=== PATIENT | female | born 1985 | race Caucasian/White ===

== ENCOUNTER 2020-06-24 13:35 | Outpatient (CLI) | payer BC, SELFPAY ==
--- NOTE | ~2020-06-24 | US_ITS ---
EXAMINATION: US FNA w image guidance DATE: 06/24/2020 14:28 INDICATION: Nontoxic single thyroid nodule. TECHNIQUE: The procedure and its benefits, risks, and benefits were discussed with the patient. Risks specifical ly discussed included bleeding. The patient verbalized understanding of the risks and agreed to proce ed. The neck was prepped and draped in the usual sterile manner. 1% lidocaine was used for local ane sthesia. 5 passes were made with a 25G needle into the lesion. Appropriate needle location was docu mented with continuous sonographic guidance. There were no immediate complications. The patient unde rstood to call the ordering physician for results after a week and a half and verbalized that underst anding. FINDINGS: Grayscale ultrasound images demonstrate needles advanced into a 2.4 cm solid, hypoechoic, wider-than- tall nodule with ill-defined margin without echogenic foci in inferior right thyroid lobe for biopsy. The thyroid is diffusely heterogeneous, hypoechoic, and hypervascular. IMPRESSION: 1. Ultrasound-guided fine needle aspiration of a nodule in right thyroid lobe. 2. Heterogeneous, hypervascular thyroid, consistent with chronic lymphocytic ([place]) thyroiditis versus Graves' disease. Reviewed, dictated and finalized at location A. [facility] [employer] IMPRESSION: 1. Ultrasound-guided fine needle aspiration of a nodule in right thyroid lobe. 2. Heterogeneous, hypervascular thyroid, consistent with chronic lymphocytic (H ashimoto) thyroiditis versus Graves' disease.
== END 2020-06-24 13:36 | disposition home or self-care (01) ==
PROVIDERS: PCP Physician Assistant; Visit Provider Nurse Practitioner Family
DX: E04.1 Nontoxic single thyroid nodule (principal)
CPT/HCPCS: 10005; 88173; 88305